=== PATIENT | female | born 1980 | race Two or more races ===

== ENCOUNTER 2016-04-23 16:52 | Emergency (ER) | payer SELFPAY ==
[~2016-04-23] VITALS: Ht 152.4 cm; Wt 90.7 kg
[2016-04-23 17:30] VITALS: BP 148/76
[2016-04-23] MEDS ORDERED: SILVER SULFADIAZINE 1 % TOPICAL CREAM 50GM TOP ONE (17:45)
[2016-04-23] MEDS ORDERED: KETOROLAC TROMETH 30 MG/ML 1ML VIAL IV ONE (17:45)
[2016-04-23] MEDS ORDERED: ONDANSETRON HCL 4 MG/2 ML VIAL IV ONE (18:30)
[2016-04-23] MEDS ORDERED: MORPHINE SULF INJ 2 MG/ML SYRINGE 1ML IV ONE (18:30)
== END 2016-04-23 19:19 | disposition home or self-care (01) ==
LOC: ER 17:05
DX: S61.532A Puncture wound without foreign body of left wrist, initial encounter (principal); S66.912A Strain of unspecified muscle, fascia and tendon at wrist and hand level, left hand, initial encounter; T23.171A Burn of first degree of right wrist, initial encounter; V49.9XXA Car occupant (driver) (passenger) injured in unspecified traffic accident, initial encounter; Y93.89 Activity, other specified; Y99.8 Other external cause status; Y92.488 Other paved roadways as the place of occurrence of the external cause
CPT/HCPCS: 73110; 96374; 96375; 99284; J1885; J2270; J2405

== ENCOUNTER 2018-08-24 03:04 | Emergency (ER) | payer BC, MEDICAID ==
[~2018-08-24] VITALS: Ht 152.4 cm; Wt 59.0 kg
[2018-08-24 03:15] VITALS: BP 161/82
== END 2018-08-24 04:29 | disposition left against medical advice (07) ==
LOC: ER 03:06
DX: H92.02 Otalgia, left ear (principal); Z53.21 Procedure and treatment not carried out due to patient leaving prior to being seen by health care provider

== ENCOUNTER 2022-03-02 18:54 | Emergency (ER) | payer MEDICAID ==
[~2022-03-02] VITALS: Ht 152.4 cm; Wt 64.8 kg
[2022-03-02] MEDS ORDERED: cefTRIAXone W LIDOCAINE 1 GM IM IM ONE (20:15)
[2022-03-02] MEDS ORDERED: KETOROLAC TROMETH 60MG/2ML VIAL IM ONE (20:15)
[2022-03-02 20:39] LABS: Urine Bacteria FEW /hpf (None Seen); Urine Blood Negative /uL (Negative); Urine Hyaline Cast FEW /lpf (0 - 2); Urine Mucus FEW (None Seen); Urine Specific Gravity 1.019 (1.001-1.035); Urine WBC 17 /hpf (0 - 5)
[2022-03-02] MEDS ORDERED: CEPH-510 PO (20:44)
[2022-03-02 21:30] VITALS: BP 148/71
== END 2022-03-02 21:41 | disposition home or self-care (01) ==
LOC: ER 18:54
DX: N39.0 Urinary tract infection, site not specified (principal)
CPT/HCPCS: 81001; 87086; 87088; 87186; 96372; 99284; J0696; J1885